=== PATIENT | male | born 1955 | race Caucasian/White ===

== ENCOUNTER 2018-07-05 18:21 | Emergency (ER) | payer MEDICAID, OTHER ==
--- NOTE | 2018-07-05 18:36 | Emergency Department Record ---
History of Present Illness - General Chief Complaint: Dizziness Stated Complaint: DIZINESS,SHAKES,LEGS AND ARMS FEEL HEAVY Time Seen by Provider: 07/05/18 18:30 Source: Patient Mode of Arrival: Ambulatory Limitations: No limitations - History of Present Illness Initial Comments: 62 yo male presents to ED for evaluation of numerous symptoms. Patient reports that his symptoms began 1 week ago with difficulty sleeping, states he has not slept all week but is very tired. Patient reports that he feels dizzy, shaky as though his blood sugar is low. Patient also reports decrease in appetite, reports that his limbs "feel heavy". Patient denies health problems other than hypoglycemia at his baseline. Patient reports seeing Dr. Fernandez for his symptoms 3 days ago. Complaint: Lightheadedness, Other Onset/Timin -: Week(s) Timing: Gradual onset Description: Lightheadedness History of Same: No History of Trauma: No Severity: Moderate Improves With: Nothing Worsens With: Exertion Associated Symptoms: Denies other symptoms - [place]onica Coma Scale Eye Response: (4) Open spontaneously Motor Response: (6) Obeys commands Verbal Response: (5) Oriented [place] Total: 15 - Related Data Home Medications Medication Instructions Recorded Confirmed Last Taken No Home Med [NO HOME MEDS] 07/05/18 07/05/18 Unknown Allergies Allergy/AdvReac Type Severity Reaction Status Date / Time No Known Drug Allergies Allergy Verified 07/05/18 18:46 Review of Systems Constitutional: Reports: Malaise, Weakness. Denies: Chills, Fever, Night sweats Eyes: Denies: Eye discharge, Eye pain ENT: Denies: Congestion, Dental pain Respiratory: Denies: Cough, Dyspnea Cardiovascular: Denies: Chest pain, Dyspnea on exertion Endocrine: Reports: Fatigue. Denies: Heat or cold intolerance, Polydipsia, Polyuria Gastrointestinal: Denies: Nausea, Vomiting Genitourinary: Denies: Incontinence, Retention Musculoskeletal: Denies: Arthralgia, Back pain Skin: Denies: Bruising, Change in color Neurological: Reports: Tremors, Vertigo, Weakness. Denies: Abnormal gait, Confusion, Headache, Numbness, Tingling Psychiatric: Denies: Anxiety Hematological/Lymphatic: Denies: Anemia Physical Exam - General General Appearance: Alert, Oriented x3, Cooperative, Mild distress, Other (Thin body habitus on examination, no focal neurological weakness on examination, stands easily and ambulates without difficulty. No ataxi noted on examination.) Limitations: No limitations - Head Head exam: Atraumatic, Normocephalic, Normal inspection Head exam detail: negative: Abrasion, Contusion, Perez's sign, General tenderness, Hematoma, Laceration - Eye Eye exam: Normal appearance. negative: Conjunctival injection, Periorbital swelling, Periorbital tenderness, Scleral icterus - ENT Ear exam: negative: Auricular hematoma, Auricular trauma Nasal Exam: negative: Active bleeding, Discharge, Dried blood, Foreign body Mouth exam: negative: Drooling, Laceration, Muffled voice, Tongue elevation - Neck Neck exam: Normal inspection. negative: Meningismus, Tenderness - Respiratory Respiratory exam: Normal lung sounds bilaterally. negative: Respiratory distress, Rhonchi, Stridor, Wheezes - Cardiovascular Cardiovascular Exam: Regular rate, Normal rhythm, Normal heart sounds - GI/Abdominal GI/Abdominal exam: Soft. negative: Distended, Rebound, Rigid, Tenderness - Rectal Rectal exam: Deferred - exam: Deferred - Extremities Extremities exam: Normal inspection. negative: Pedal edema, Tenderness - Back Back exam: Denies: CVA tenderness (R), CVA tenderness (L) - Neurological Neurological exam: Alert, Normal gait, Oriented X3. negative: Motor sensory deficit - Psychiatric Psychiatric exam: Normal affect, Normal mood - Skin Skin exam: Normal color. negative: Abrasion Type of lesion: negative: abrasion Course - Reevaluation(s) Reevaluation #1: 07/05/18 18:35 Patient was seen and examined. Patient stands easily, ambulates with steady gait, no ataxia, no clinical signs for cerebellar dysfunction on examination. Will obtain laboratory studies, EKG, and reassess. Reevaluation #2: 07/05/18 18:56 EKG: NSR 63 Normal axis, normal intervals No acute ST-T wave changes Reevaluation #3: 07/05/18 19:44 Laboratory studies reviewed and are grossly unremarkable for an acute process. Patient was updated on all results, appears stable for discharge at this time. I did discuss Melatonin for his sleep that he may try this evening prior to going to bed. Medical Decision Making - Lab Data Result diagrams: 07/05/18 18:37 07/05/18 18:37 Disposition Disposition: Discharge Clinical Impression: Insomnia Qualifiers: Insomnia type: unspecified Qualified Code(s): G47.00 - Insomnia, unspecified Disposition: Home, Self-Care Condition: (2) Stable Instructions: Insomnia (ED) Additional Instructions: Return to ED if your symptoms worsen or if you have any concerns. Melatonin as directed. Follow-up with your family doctor in 3-5 days as directed. Forms: Patient Portal Access Time of Disposition: 19:50 Quality - Quality Measures Quality Measures: N/A - Blood Pressure Screening Does Patient Have Any of the Following: No Blood Pressure Classification: Pre-Hypertensive BP Reading Systolic Measurement: 137 Diastolic Measurement: 52 Screening for High Blood Pressure: < Pre-Hypertensive BP, F/U Documented > [ G8950] Pre-Hypertensive Follow-up Interventions: Referral to alternative/primary care provider.
[2018-07-05 18:45] LABS: BASO % 0.3 % (0-6); EOS % 1.1 % (0-6); GRAN % 63.4 % (47-80); HEMATOCRIT 44.3 % (42.0-52.0); LYMPH % 23.2 % (16-45); MEAN CELL VOLUME 93.9 fl (81-97); MEAN CORPUSCULAR HEMOGLOBIN 31.8 pg (27-33); MEAN CORPUSCULAR HGB CONC 33.9 g/dl (32-36); MEAN PLATELET VOLUME 10.1 fl (7.4-10.4); PLATELET COUNT 243 K/uL (130-400); RED BLOOD COUNT 4.72 M/uL (4.40-5.70); WHITE BLOOD COUNT W/O DIFF 7.5 K/uL (4.2-12.2)
[2018-07-05] MEDS ORDERED: 0.9 % SODIUM CHLORIDE 1000ML 1,000 ML IV SCH (18:45)
[2018-07-05 18:56] LABS: BLOOD UREA NITROGEN 11 mg/dL (8-23); CREATININE 0.7 mg/dL (0.7-1.2); EST GLOMERULAR FILTRATION RATE > 60 mL/min
[2018-07-05 18:57] LABS: TOTAL PROTEIN 6.7 g/dL (6.6-8.7)
[2018-07-05 18:58] LABS: URINE APPEARANCE CLEAR; URINE BILIRUBIN NEGATIVE (NEGATIVE); URINE BLOOD NEGATIVE (NEGATIVE); URINE COLOR YELLOW; URINE GLUCOSE (UA) NEGATIVE (NEGATIVE); URINE KETONE NEGATIVE (NEGATIVE); URINE LEUKOCYTE ESTERASE NEGATIVE (NEGATIVE); URINE NITRITE NEGATIVE (NEGATIVE); URINE PROTEIN NEGATIVE (NEGATIVE); URINE UROBILINOGEN 0.2 E.U./dL (0.20 - 1.00)
[2018-07-05 18:59] LABS: GLUCOSE,RANDOM 111 mg/dL (74-109)
[2018-07-05 19:01] LABS: ALT/SGPT 16 U/L (<41); AST/SGOT 16 U/L (10.0-50.0)
[2018-07-05 19:02] LABS: ALB/GLOB RATIO 1.8 (1.1-1.8); ALBUMIN 4.3 g/dL (4.0-5.0); ALKALINE PHOSPHATASE 32 U/L (55-149)
[2018-07-05 19:13] LABS: THYROID STIMULATING HORMONE 0.91 uIU/mL (0.270-4.20)
== END 2018-07-05 20:02 | disposition home or self-care (01) ==
LOC: ER 18:21
DX: R42 Dizziness and giddiness (principal); G47.00 Insomnia, unspecified; F17.290 Nicotine dependence, other tobacco product, uncomplicated
CPT/HCPCS: 36416; 80053; 81003; 82948; 84443; 84484; 85025; 93005; 93010; 99284; J7030

== ENCOUNTER 2018-07-07 14:30 | Emergency (ER) | payer OTHER ==
--- NOTE | 2018-07-07 14:56 | Emergency Department Record ---
History of Present Illness - General Chief complaint: Weakness Stated complaint: WEAKNESS,DIZZY, Time Seen by Provider: 07/07/18 14:43 Source: Patient Mode of Arrival: Wheelchair Limitations: No limitations - History of Present Illness Initial comments: Pt with complaint of insomnia for over one week. Pt seen here 2 days ago for the same and had normal evaluation and lab studies. Pt states he took Melatonin without success. Has tried no other sleep aids. He laid in bed 9.5 hours last night without sleeping. He feels overall weak without focal weakness. No DUNN, visual changes, no gait abnormalities, no difficulty with speech or coordination. Pt had a flu shot and pneumonia immunization in April. Recent viral illness. When questioned about depression he states he has never had issues with depression but he is living alone and admits it could be an issue. He is active with caring fro a 45 year old brother with Down's and bowling with friends. He denies regular alcohol or drug use. Onset/Timin -: Week(s) Location: Generalized Severity: Moderate Consistency: Constant Improves with: None Worsens with: None Associated Symptoms: Other - [place] Coma Scale Eye Response: (4) Open spontaneously Motor Response: (6) Obeys commands Verbal Response: (5) Oriented [place] Total: 15 - Related Data Previous Rx's Medication Instructions Recorded Zolpidem Tartrate [Ambien] 5 mg PO QHS PRN 6 Days #6 tablet 07/07/18 Allergies Allergy/AdvReac Type Severity Reaction Status Date / Time No Known Drug Allergies Allergy Verified 07/07/18 14:33 Travel Screening - Travel/Exposure Within Last 30 Days Have you traveled within the last 30 days?: No - Travel/Exposure Within Last Year Have you traveled outside the [place] in the last year?: No - Additonal Travel Details Have you been exposed to anyone with a communicable illness?: No - Travel Symptoms Symptom Screening: None Review of Systems Constitutional: Reports: Weakness, Weight change (recent weight loss). Denies: Chills, Fever, Night sweats Eyes: Denies: Eye discharge, Eye pain, Photophobia, Vision change ENT: Denies: Congestion, Ear pain, Hearing loss Respiratory: Denies: Cough, Dyspnea Cardiovascular: Denies: Chest pain, Dyspnea on exertion, Palpitations, Syncope Endocrine: Reports: Fatigue. Denies: Polydipsia, Polyuria Gastrointestinal: Denies: Abdominal pain, Diarrhea, Nausea, Vomiting Genitourinary: Denies: Hematuria, Incontinence Musculoskeletal: Denies: Back pain, Myalgia Skin: Denies: Change in color, Rash Neurological: Reports: As per HPI. Denies: Abnormal gait, Confusion, Headache, Weakness Psychiatric: Denies: Anxiety, Auditory hallucinations, Homicidal thoughts, Suicidal thoughts, Visual hallucinations Hematological/Lymphatic: Denies: Anemia Past Medical History - SOCIAL HISTORY Smoking Status: Light tobacco smoker (<10/day) Alcohol Use: Occasional Drug Use: None - RESPIRATORY Hx Respiratory Disorders: Yes Hx Pneumonia: Yes - CARDIOVASCULAR Hx Cardio Disorders: No - NEURO Hx Neuro Disorders: No - GI Hx GI Disorders: Yes Hx Abdominal Pain: Yes (from ruptured appy) - Hx Genitourinary Disorders: Yes Hx Kidney Stones: Yes (currently in kidney) - ENDOCRINE Hx Endocrine Disorders: No Hx Diabetes: (hypoglycemic) Hx Thyroid Disease: No - MUSCULOSKELETAL Hx Musculoskeletal Disorders: No - PSYCH Hx Psych Problems: No - HEMATOLOGY/ONCOLOGY Hx Hematology/Oncology Disorders: Yes Hx Clotting Problems: Yes Family Medical History Any Significant Family History?: Yes Hx Dementia: Mother Hx Heart Disease: Father Hx Resp Disorders: Father, Brother/Sister Physical Exam - General General Appearance: Alert, Oriented x3, Cooperative, No acute distress - Head Head exam: Normal inspection Head exam detail: negative: Abrasion, Contusion - Eye Eye exam: Normal appearance, PERRL - ENT ENT exam: Normal exam, Mucous membranes moist, Normal external ear exam, Normal orophraynx, TM's normal bilaterally Ear exam: Normal external inspection. negative: External canal tenderness Nasal Exam: Normal inspection. negative: Discharge, Sinus tenderness Mouth exam: Normal external inspection, Tongue normal - Neck Neck exam: Normal inspection, Full ROM. negative: Tenderness - Respiratory Respiratory exam: Normal lung sounds bilaterally. negative: Respiratory distress - Cardiovascular Cardiovascular Exam: Regular rate, Normal rhythm, Normal heart sounds. negative : Tachycardia Peripheral Pulses: 2+: Radial (R), Radial (L) - GI/Abdominal GI/Abdominal exam: Soft, Normal bowel sounds. negative: Tenderness - Extremities Extremities exam: Normal inspection, Full ROM, Normal capillary refill. negative: Tenderness - Back Back exam: Reports: Normal inspection, Full ROM. Denies: Muscle spasm, Rash noted, Tenderness - Neurological Neurological exam: Alert, CN II-XII intact, Normal gait, Oriented X3, Reflexes normal. negative: Motor sensory deficit - Psychiatric Psychiatric exam: Flat affect, Normal affect, Normal mood - Skin Skin exam: Normal color. negative: Rash Course Vital Signs 07/07/18 14:34 Temperature 98 F Pulse Rate 60 Respiratory 18 Rate Blood Pressure 127/77 Pulse Ox 97 - Reevaluation(s) Reevaluation #1: 07/07/18 15:22 Reviewed chart from visit 2 days ago. Labs normal. Spoke with Dr. Fernandez regarding pt and situation. Discussed possible depression and referral to psych counsellor which Dr. Fernandez will address in the office. Also discussed giving pt Ambien 5mg (#4) to try at home. Pts sister will stay the night with him when he tries the med. Discussed cautions with Ambien as to driving, etc... Pt is not suicidal and agrees with the plan. Disposition Disposition: Discharge Clinical Impression: Insomnia Disposition: Home, Self-Care Condition: (1) Good Instructions: Insomnia (ED) Additional Instructions: Call Dr. Fernandez for appointment. Sister to stay with you and try the Ambien at home for sleep. Avoid caffiene and stimulants. Return as needed. Prescriptions: Zolpidem Tartrate [Ambien] 5 mg PO QHS PRN 6 Days #6 tablet PRN Reason: Sleep Forms: Patient Portal Access Time of Disposition: 15:29 Quality - Quality Measures Quality Measures: N/A - Blood Pressure Screening Does Patient Have Any of the Following: No Blood Pressure Classification: Pre-Hypertensive BP Reading Systolic Measurement: 127 Diastolic Measurement: 77 Screening for High Blood Pressure: < Normal BP, F/U Not Required > [G8783]
== END 2018-07-07 15:46 | disposition home or self-care (01) ==
LOC: ER 14:30
DX: G47.00 Insomnia, unspecified (principal); F17.210 Nicotine dependence, cigarettes, uncomplicated
CPT/HCPCS: 99282